=== PATIENT | female | born 1955 | race Caucasian/White ===

== ENCOUNTER → 2018-01-07 16:09 | Outpatient (REF) | payer OTHER, MEDICAID, SELFPAY | LOC: LAB 16:09 | PROVIDERS: Visit Provider Internal Medicine | DX: L08.9 Local infection of the skin and subcutaneous tissue, unspecified (principal) | CPT/HCPCS: 87070; 87075; 87077; 87205 ==

== ENCOUNTER → 2018-01-21 09:01 | Outpatient (CLI) | payer OTHER, MEDICAID, SELFPAY | PROVIDERS: Visit Provider Internal Medicine | DX: T81.31XD Disruption of external operation (surgical) wound, not elsewhere classified, subsequent encounter (principal); S31.105D Unspecified open wound of abdominal wall, periumbilic region without penetration into peritoneal cavity, subsequent encounter | CPT/HCPCS: 99213 ==